=== PATIENT | male | born 2000 | race Caucasian/White ===

== ENCOUNTER 2023-06-03 16:35 | Emergency (ER) | payer SELFPAY ==
[~2023-06-03] VITALS: Ht 185.4 cm; Wt 84.1 kg
[2023-06-03 17:44] VITALS: BP 142/82; PULSE 74; TEMP 97.8
== END 2023-06-03 17:43 | disposition home or self-care (01) ==
LOC: COL.ER 16:35
DX: S01.511A Laceration without foreign body of lip, initial encounter (principal); S00.03XA Contusion of scalp, initial encounter; Y04.0XXA Assault by unarmed brawl or fight, initial encounter; Y92.59 Other trade areas as the place of occurrence of the external cause; Y99.0 Civilian activity done for income or pay